=== PATIENT | male | born 1995 | race Two or more races ===

== ENCOUNTER 2025-10-04 19:44 | Emergency (ER) | payer OTHER ==
[~2025-10-04] VITALS: Ht 162.6 cm; Wt 67.1 kg
[2025-10-04 19:55] VITALS: TEMP 98.3
[2025-10-04] MEDS ORDERED: LIDOCAINE HCL/MPF 1% 30 ML VIAL IJ ONE (20:58)
[2025-10-04] MEDS ORDERED: TDAP [DIPH/PERTUSSIS/TET] 0.5 ML VIAL IM ONE (20:58)
[2025-10-04] MEDS: TDAP [DIPH/PERTUSSIS/TET] 0.5 ML VIAL IM ONE (21:07)
[2025-10-04] MEDS: LIDOCAINE /MPF 1% VIAL 5 ML VIAL IJ ONE (21:09)
[2025-10-04] MEDS ORDERED: ACET325C7 PO (21:54)
[2025-10-04] MEDS ORDERED: IBUP-1955 PO (21:54)
[2025-10-04 22:08] VITALS: BP 125/78; O2SAT 99
== END 2025-10-04 22:05 | disposition home or self-care (01) ==
LOC: ER 20:00
DX: S61.412A Laceration without foreign body of left hand, initial encounter (principal); W25.XXXA Contact with sharp glass, initial encounter; Y93.G1 Activity, food preparation and clean up; Y92.89 Other specified places as the place of occurrence of the external cause; Y99.9 Unspecified external cause status
CPT/HCPCS: 12002; 90471; 90715; 99283; J3490

== ENCOUNTER 2025-10-17 15:34 | Emergency (ER) | payer OTHER ==
[~2025-10-17] VITALS: Ht 162.6 cm; Wt 65.8 kg
[~2025-10-17 15:34] MED LIST: ACET325C7 PO; IBUP-1955 PO
[2025-10-17 15:46] VITALS: BP 120/62; TEMP 98.1; O2SAT 99
== END 2025-10-17 16:25 | disposition home or self-care (01) ==
LOC: ER 15:38
DX: S61.412D Laceration without foreign body of left hand, subsequent encounter (principal); X58.XXXD Exposure to other specified factors, subsequent encounter